=== PATIENT | male | born 1960 ===

== ENCOUNTER 2016-08-30 12:46 | Inpatient (IN) | payer BC ==
--- NOTE | 2016-08-30 13:05 | ED PDOC ---
HPI:STROKE - Time Time: 13:02 - Historian Historian: Patient - Chief Complaint Chief Complaint: Weakness, Slurred speech - Onset Date: 08/30/16 Time: 05:30 Onset: Hours (7.5) - Timing Timing: Resolved - Context Context: Standing - Location Location: Speech Locate right:: Upper extremity, Lower extremity - Severity of pain Maximum severity:: None Severity Current: None - Exacerbated by Exacerbated by:: Nothing - Relieved by Relieved by:: Nothing - TPA Positive for Contraindication: Yes Reason tPA is not being Administered: Sxs resolved - Notes: Notes:: Woke up at 5:30 AM today unable to speak clearly. Also with weakness right uppeer and lowere ext. Sxs resolved at 9AM today. NIHSS Stroke Scale - How Severe is the Stroke Level of Consciousness: 0=Alert LOC to Questions: 0=Both comments correct LOC to commands: 0=Obeys both correctly Best Gaze: 0=Normal Visual: 0=No visual loss Facial: 0=Normal Motor Arm - Left: 0=No drift Motor Arm - Right: 0=No drift Motor Leg - Left: 0=No drift Motor Leg - Right: 0=No drift Limb Ataxia: 0=Absent Sensory: 0=Normal Best Language: 0=No aphasia Dysarthia: 0=Normal articulation Extinction & Inattention (Neglect): 0=Normal, no object Score: 0 rTPA Inclusion/Exclusion - Refusal of Treatment Patient Refused Treatment: No - Inclusion Criteria for Altepase Patient is 18 years or Older: Yes The Clinical Diagnosis of Ischemic Stroke That is Causing a Potentially Disabling Neurological Deficit: Yes Time of Onset is Well Established to be Less Than 270 Minute Before Treatment Would Begin: No Risk/Benefit Discussed With Patient/Family Member Present: No Past Medical History Reviewed: Historical Data, Nursing Documentation, Vital Signs Vital Signs: Last Vital Signs Temp 98.2 F 08/30/16 12:49 Pulse 59 L 08/30/16 12:49 Resp 16 08/30/16 12:49 BP 125/83 08/30/16 12:49 Pulse Ox 100 08/30/16 12:49 - Medical History PMH: No Chronic Diseases - Family History Family History: States: Unknown Family Hx - Allergies Allergies/Adverse Reactions: Allergies Allergy/AdvReac Type Severity Reaction Status Date / Time No Known Allergies Allergy Verified 08/30/16 12:49 Review of Systems ROS Statement: Except As Marked, All Systems Reviewed And Found Negative Neurological: Positive for: Weakness, Change in Speech Physical Exam - Reviewed Nursing Documentation Reviewed: Yes Vital Signs Reviewed: Yes - Physical Exam Appears: Positive for: Non-toxic, No Acute Distress Head Exam: Positive for: ATRAUMATIC, NORMAL INSPECTION, NORMOCEPHALIC Skin: Positive for: Normal Color, Warm, DRY Eye Exam: Positive for: EOMI, Normal appearance, PERRL ENT: Positive for: Normal ENT Inspection Neck: Positive for: Normal, Painless ROM Cardiovascular/Chest: Positive for: Regular Rate, Rhythm Respiratory: Positive for: CNT, Normal Breath Sounds Gastrointestinal/Abdominal: Positive for: Normal Exam, Bowel Sounds, Soft Back: Positive for: Normal Inspection Extremity: Positive for: Normal ROM Neurologic/Psych: Positive for: Alert, Oriented. Negative for: Motor/Sensory Deficits - ECG O2 Sat by Pulse Oximetry: 100 Disposition - Clinical Impression Clinical Impression: TIA (transient ischemic attack) - Patient ED Disposition Is Patient to be Admitted: Yes - Disposition Disposition Time: 13:30 Condition: FAIR - Pt Status Changed To: Hospital Disposition Of: Observation - POA Present On Arrival: None
[2016-08-30 13:28] LABS: BASO % 0.5 % (0.0-2.0); EOS # 0.2 K/uL (0.0-0.7); EOS % 2.4 % (0.0-4.0); HEMOGLOBIN 14.7 g/dL (12.0-18.0); LYMPH # 1.6 K/uL (1.0-4.3); LYMPH % 22.4 % (20.0-40.0); MEAN CELL VOLUME 85.9 fl (80.0-94.0); MEAN CORPUSCULAR HEMOGLOBIN 28.5 pg (27.0-31.0); MEAN CORPUSCULAR HGB CONC 33.2 g/dL (33.0-37.0); MEAN PLATELET VOLUME 8.6 fl (7.2-11.7); MONO # 0.5 K/uL (0.0-0.8); MONO % 6.7 % (0.0-10.0); RBC 5.15 Mil/uL (4.40-5.90); RED CELL DISTRIBUTION WIDTH 14.2 % (11.5-14.5); WHITE BLOOD COUNT 7.3 K/uL (4.8-10.8)
[2016-08-30 13:49] LABS: ALB/GLOB RATIO 1.6 (1.0-2.1); ALBUMIN 4.6 g/dL (3.5-5.0); ALT/SGPT 37 U/L (21-72); AST/SGOT 28 U/L (17-59); BLOOD UREA NITROGEN 15 mg/dl (9-20); CALCIUM 9.6 mg/dL (8.4-10.2); GFR AFRICAN-AMERICAN > 60; GFR NON-AFRICAN AMERICAN > 60
--- NOTE | 2016-08-30 15:47 | CT ---
PROCEDURE: CT HEAD WITHOUT CONTRAST. HISTORY: r/o bleed COMPARISON: None available. TECHNIQUE: Axial computed tomography images were obtained through the head/brain without intravenous contrast. Radiation dose: Total exam DLP = 833.15 mGy-cm. This CT exam was performed using one or more of the following dose reduction techniques: Automated exposure control, adjustment of the mA and/or kV according to patient size, and/or use of iterative reconstruction technique. FINDINGS: HEMORRHAGE: No intracranial hemorrhage. BRAIN: No mass effect or edema. No atrophy or chronic microvascular ischemic changes. VENTRICLES: Unremarkable. No hydrocephalus. CALVARIUM: Unremarkable. PARANASAL SINUSES: Unremarkable as visualized. No significant inflammatory changes. MASTOID AIR CELLS: Unremarkable as visualized. No inflammatory changes. OTHER FINDINGS: None. IMPRESSION: No acute intracranial abnormalities. No significant findings to account for the clinical presentation.
--- NOTE | 2016-08-30 16:00 | RAD ---
HISTORY: TIA COMPARISON: No prior. TECHNIQUE: Chest PA and lateral FINDINGS: LUNGS: No active pulmonary disease. Calcified granuloma left upper lobe. PLEURA: No significant pleural effusion identified. No pneumothorax apparent. CARDIOVASCULAR: No radiographic findings to suggest acute or significant cardiovascular disease. OSSEOUS STRUCTURES: No significant abnormalities. VISUALIZED UPPER ABDOMEN: Normal. OTHER FINDINGS: None. IMPRESSION: No active disease.
--- NOTE | 2016-08-30 16:59 | CP.PCM.HP ---
History of Present Illness - History of Present Illness History of Present Illness: Patient seen and examined at the bedside with attending. 55M with no PMH p/w new onset of symptoms which started this morning. It started with a headache across his LEFT scalp, not associated with visual/ auditory deficits or scotomas/lights. Pt reports he was standing lost his balance due to feeling his RIGHT leg was going to "give out" but he was able to catch himself. That resolved and then he experienced difficulty brushing his teeth he had a sensation of inability to move toothbrush where he wanted it to, this then resolved. He was able to get dressed without difficulty, carpooled to work, and then while at work experienced difficulty with verbalizing what he wanted to say and difficulty writing. Throughout this he continued to have the headache, took an aspirin at ~0900 and all symptoms to include headache went away and have not returned. None of these episodes were associated with dizziness, visual disturbance, diaphoresis, SOB, chest pain, palpitations, or heart racing. PMH: None, denies prior episodes PSH: Appendectomy Smoke: Quit 25yrs ago ALL: NKDA MIRTA: denies prescription, OTC, herbal Present on Admission - Present on Admission Any Indicators Present on Admission: No Review of Systems - Constitutional Constitutional: Headache - Neurological Neurological: Abnormal Speech, Focal Weakness Past Patient History - Past Social History Smoking Status: Never Smoked - CARDIAC Hx Cardiac Disorders: No - PULMONARY Hx Respiratory Disorders: No - NEUROLOGICAL Hx Neurological Disorder: No - HEENT Hx HEENT Problems: No - RENAL Hx Chronic Kidney Disease: No - ENDOCRINE/METABOLIC Hx Endocrine Disorders: No - HEMATOLOGICAL/ONCOLOGICAL Hx Blood Disorders: No - INTEGUMENTARY Hx Dermatological Problems: No - MUSCULOSKELETAL/RHEUMATOLOGICAL Hx Musculoskeletal Disorders: No - GENITOURINARY/GYNECOLOGICAL Hx Genitourinary Disorders: No - PSYCHIATRIC Hx Psychophysiologic Disorder: No - SURGICAL HISTORY Hx Appendectomy: Yes Meds Allergies/Adverse Reactions: Allergies Allergy/AdvReac Type Severity Reaction Status Date / Time No Known Allergies Allergy Verified 08/30/16 12:49 Physical Exam - Constitutional Appears: Well, Non-toxic, No Acute Distress - Head Exam Head Exam: ATRAUMATIC, NORMAL INSPECTION - Eye Exam Eye Exam: EOMI, PERRL. absent: Nystagmus - ENT Exam ENT Exam: Mucous Membranes Moist, Normal Exam - Neck Exam Neck exam: Positive for: Normal Inspection. Negative for: Lymphadenopathy - Respiratory Exam Respiratory Exam: Clear to Auscultation Bilateral, NORMAL BREATHING PATTERN. absent: Rales, Rhonchi, Wheezes - Cardiovascular Exam Cardiovascular Exam: Bradycardia, REGULAR RHYTHM. absent: JVD - GI/Abdominal Exam GI & Abdominal Exam: Normal Bowel Sounds, Soft. absent: Tenderness - Extremities Exam Extremities exam: Positive for: full ROM, normal capillary refill, normal inspection, pedal pulses present. Negative for: calf tenderness, pedal edema, tenderness - Neurological Exam Neurological exam: Alert, CN II-XII Intact, Oriented x3, Reflexes Normal - Psychiatric Exam Psychiatric exam: Normal Affect, Normal Mood - Skin Skin Exam: Intact, Warm Results - Vital Signs Recent Vital Signs: Last Vital Signs Temp 36.7 C 08/30/16 15:10 Pulse 51 L 08/30/16 15:10 Resp 20 08/30/16 15:10 BP 132/76 08/30/16 15:10 Pulse Ox 99 08/30/16 15:10 - Labs Result Diagrams: 08/30/16 13:10 08/30/16 13:10 Labs: Laboratory Results - last 24 hr 08/30/16 08/30/16 08/30/16 13:10 13:10 15:01 WBC 7.3 RBC 5.15 Hgb 14.7 Hct 44.2 MCV 85.9 MCH 28.5 MCHC 33.2 RDW 14.2 Plt Count 224 MPV 8.6 Neut % (Auto) 68.0 Lymph % (Auto) 22.4 [place] % (Auto) 6.7 Eos % (Auto) 2.4 Baso % (Auto) 0.5 Neut # 5.0 Lymph # 1.6 [place] # 0.5 Eos # 0.2 Baso # 0.0 Sodium 140 Potassium 3.9 Chloride 106 Carbon Dioxide 24 Anion Gap 14 BUN 15 Creatinine 0.7 L Est GFR ( Amer) > 60 Est GFR (Non-Af Amer) > 60 Random Glucose 90 Calcium 9.6 Total Bilirubin 0.6 AST 28 ALT 37 Alkaline Phosphatase 74 Troponin I < 0.0120 Total Protein 7.5 Albumin 4.6 Globulin 2.9 Albumin/Globulin Ratio 1.6 TSH 3rd Generation 1.80 Assessment & Plan (1) TIA (transient ischemic attack) Assessment and Plan: Spectrum of symptoms spread over time and ?differing distribution possibly indicative of microembolic events, however patient also with asymptomatic bradycardia. CT head negative for ICH. - Cardiology Consult (Dr Powell) - Echocardiogram - Carotid Duplex - PT screening Status: Acute (2) DVT prophylaxis Assessment and Plan: Lovenox 40mg, SC, HS Status: Acute
--- NOTE | 2016-08-30 17:35 | US ---
PROCEDURE: Duplex ultrasound of the carotid and vertebral arteries. HISTORY: tia COMPARISON: None available. TECHNIQUE: Grayscale and duplex Doppler evaluation of the cervical carotid and vertebral arteries were performed. The common carotid, carotid bifurcations and cervical ICA and proximal ECA were evaluated. The vertebral arteries were evaluated for gross patency and direction. FINDINGS: RIGHT CAROTID ARTERIES: Common Carotid Artery: Normal. Maximal flow velocity of 90 cm/s. Carotid Bifurcation: Heterogeneous plaque formation. Internal Carotid Artery:Heterogeneous plaque formation. Maximal flow velocity of 87.3 cm/s. External Carotid Artery (proximal branches): Normal. Maximal flow velocity of 58.6 cm/s. ICA/CCA Ratio: 1.0 LEFT CAROTID ARTERIES: Common Carotid Artery: Normal. Maximal flow velocity of 106.4 cm/s. Carotid Bifurcation: Heterogeneous plaque formation. Internal Carotid Artery:Heterogeneous plaque formation. Maximal flow velocity of 81.4 cm/s. External Carotid Artery (proximal branches): Normal. Maximal flow velocity of 65.5 cm/s. ICA/CCA Ratio: VERTEBRAL ARTERIES: Right Vertebral Artery: Patent. Antegrade flow. Left Vertebral Artery: Patent. Antegrade flow. OTHER FINDINGS: None. IMPRESSION: Right ICA degree of stenosis: Less than 50% Left ICA degree of stenosis: Less than 50% Reference Internal Carotid Artery (ICA) Peak Systolic Velocity (PSV) for above: 1. Less than 50% stenosis less than 125 cm/s peak systolic velocity 2. 50-69% stenosis 125-230cm/s peak systolic velocity 3. Greater than 70% but less than near occlusion greater than 230 cm/s peak systolic velocity
--- NOTE | 2016-08-30 20:46 | CP.PCM.CON ---
History of Present Illness - History of Present Illness History of Present Illness: I was asked to see patient by Dr. Brownlee. Patient is a 55 year old male with PMH HTN, hypercholesterolemia who presents with dizziness headache, and disequilibrium. The patient was noted to have left sided headache, and then developed associated weakness of the right leg. The patient was able to proceed with his day, but noted word finding difficulties while at work. The patient presented to [facility] for furhter evaluation. His is at the bedside, and reports improvement in his symptoms. Review of Systems - Constitutional Constitutional: absent: As Per HPI, Anorexia, Chills, Daytime Sleepiness, Excessive Sweating, Fatigue, Fever, Frequent Falls, Headache, Increased Appetite , Lethargy, Malaise, Night Sweats, Snoring, Sleep Apnea, Weight Gain, Weight Loss, Weakness, Other - EENT Eyes: absent: As Per HPI, Blind Spots, Blurred Vision, Change in Vision, Decreased Night Vision, Diplopia, Discharge, Dry Eye, Exophthalmos, Floaters, Irritation, Itchy Eyes, Loss of Peripheral Vision, Pain, Photophobia, Requires Corrective Lenses, Sees Flashes, Spots in Vision, Tunnel Vision, Other Visual Disturbances, Loss of Vision, Other Ears: absent: As Per HPI, Decreased Hearing, Ear Discharge, Ear Pain, Tinnitus, Abnormal Hearing, Disequilibrium, Dizziness, Other Nose/Mouth/Throat: absent: As Per HPI, Epistaxis, Nasal Congestion, Nasal Discharge, Nasal Obstruction, Nasal Trauma, Nose Pain, Post Nasal Drip, Sinus Pain, Sinus Pressure, Bleeding Gums, Change in Voice, Dental Pain, Dry Mouth, Dysphagia, Halitosis, Hoarsness, Lip Swelling, Mouth Lesions, Mouth Pain, Odynophagia, Sore Throat, Throat Swelling, Tongue Swelling, Facial Pain, Neck Pain, Neck Mass, Other - Cardiovascular Cardiovascular: absent: As Per HPI, Acrocyanosis, Chest Pain, Chest Pain at Rest , Chest Pain with Activity, Claudication, Diaphoresis, Dyspnea, Dyspnea on Exertion, Edema, Irregular Heart Rhythm, Pain Radiating to Arm/Neck/Jaw, Leg Edema, Leg Ulcers, Lightheadedness, Orthopnea, Palpitations, Paroxysmal Nocturnal Dyspnea, Pedal Edema, Radiating Pain, Rapid Heart Rate, Slow Heart Rate, Syncope, Other - Respiratory Respiratory: absent: As Per HPI, Cough, Dyspnea, Hemoptysis, Dyspnea on Exertion , Wheezing, Snoring, Stridor, Pain on Inspiration, Chest Congestion, Excessive Mucous Production, Change in Mucous Color, Pain with Coughing, Other - Gastrointestinal Gastrointestinal: absent: As Per HPI, Abdominal Pain, Belching, Bloating, Change in Bowel Habits, Change in Stool Character, Coffee Ground Emesis, Constipation, Cramping, Diarrhea, Dyspepsia, Dysphagia, Early Satiety, Excessive Flatus, Fecal Incontinence, Heartburn, Hematemesis, Hematochezia, Loose Stools, Melena, Nausea, Odynophagia, Temesmus, Vomiting, Other - Genitourinary Genitourinary: absent: As Per HPI, Change in Urinary Stream, Difficulty Urinating, Dysuria, Flank Pain, Hematuria, Pyuria, Nocturia, Urinary Incontinence, Urinary Frequency, Urinary Hesitance, Urinary Urgency, Voiding Freq/Small Amts, Freq UTI, Hx Renal/Bladder Calculi, Hx /Renal Surgery, Bladder Distension, Other - Musculoskeletal Musculoskeletal: absent: As Per HPI, Abnormal Gait, Arthralgias, Atrophy, Back Pain, Deformity, Joint Swelling, Limited Range of Motion, Loss of Height, Muscle Cramps, Muscle Weakness, Myalgias, Neck Pain, Numbness, Radiating Pain into Limb, Stiffness, Tingling, Other - Integumentary Integumentary: absent: As Per HPI, Acne, Alopecia, Bleeding Lesions, Change in Hair, Change in Nails, Change in Pigmentation, Changing Lesions, Dry Skin, Erythema, Furuncle, Hirsutism, Lesions, New Lesions, Non-Healing Lesions, Photosensitivity, Pruritus, Rash, Skin Pain, Skin Ulcer, Sores, Striae, Swelling , Unusual Bruising, Wounds, Jaundice, Other - Neurological Neurological: Abnormal Speech, Focal Weakness, Paresthesias - Psychiatric Psychiatric: absent: As Per HPI, Abnormal Sleep Pattern, Anhedonia, Anxiety, Auditory Hallucinations, Behavioral Changes, Change in Appetite, Change in Libido, Confusion, Depression, Difficulty Concentrating, Hallucinations, Homicidal Ideation, Hopelessness, Irritability, Memory Loss, Mood Swings, Panic Attacks, Paranoia, Suicidal Ideation, Visual Hallucinations, Tactile Hallucinations, Other - Endocrine Endocrine: absent: As Per HPI, Change in Body Appearance, Change in Libido, Cold Intolorance, Deepening of Voice, Excessive Sweating, Fatigue, Flushing, Heat Intolorance, Increase in Ring/Shoe/Hat Size, Palpitations, Polydipsia, Polyphagia, Polyuria, Other - Hematologic/Lymphatic Hematologic: absent: As Per HPI, Easy Bleeding, Easy Bruising, Lymphadenopathy, Other Past Patient History - Past Medical History & Family History Past Medical History?: No - Past Social History Smoking Status: Never Smoked - CARDIAC Hx Cardiac Disorders: No - PULMONARY Hx Respiratory Disorders: No - NEUROLOGICAL Hx Neurological Disorder: No - HEENT Hx HEENT Problems: No - RENAL Hx Chronic Kidney Disease: No - ENDOCRINE/METABOLIC Hx Endocrine Disorders: No - HEMATOLOGICAL/ONCOLOGICAL Hx Blood Disorders: No - INTEGUMENTARY Hx Dermatological Problems: No - MUSCULOSKELETAL/RHEUMATOLOGICAL Hx Musculoskeletal Disorders: No Hx Falls: No - GENITOURINARY/GYNECOLOGICAL Hx Genitourinary Disorders: No - PSYCHIATRIC Hx Psychophysiologic Disorder: No Hx Substance Use: No - SURGICAL HISTORY Hx Surgeries: Yes Hx Appendectomy: Yes - ANESTHESIA Hx Anesthesia: Yes Hx Anesthesia Reactions: No Hx Malignant Hyperthermia: No Meds Allergies/Adverse Reactions: Allergies Allergy/AdvReac Type Severity Reaction Status Date / Time No Known Allergies Allergy Verified 08/30/16 12:49 - Medications Medications: Current Medications Aspirin (Aspirin) 325 mg PO DAILY [facility] Enoxaparin Sodium (Lovenox) 40 mg SC HS [facility] PRN Reason: Protocol Physical Exam - Constitutional Appears: Non-toxic - Head Exam Head Exam: NORMAL INSPECTION - Eye Exam Eye Exam: Normal appearance - ENT Exam ENT Exam: Mucous Membranes Moist - Neck Exam Neck exam: Positive for: Full Rom - Respiratory Exam Respiratory Exam: NORMAL BREATHING PATTERN - Cardiovascular Exam Cardiovascular Exam: REGULAR RHYTHM - GI/Abdominal Exam GI & Abdominal Exam: Normal Bowel Sounds - Rectal Exam Rectal Exam: Deferred - Extremities Exam Extremities exam: Positive for: pedal edema - Back Exam Back exam: NORMAL INSPECTION - Neurological Exam Neurological exam: Alert, Oriented x3 - Psychiatric Exam Psychiatric exam: Normal Affect - Skin Skin Exam: Normal Color Results - Vital Signs Recent Vital Signs: Last Vital Signs Temp 97.5 F L 08/30/16 19:25 Pulse 53 L 08/30/16 19:25 Resp 18 08/30/16 19:25 BP 121/63 08/30/16 19:25 Pulse Ox 98 08/30/16 19:25 - Labs Result Diagrams: 08/30/16 13:10 06/29/17 13:10 Labs: Laboratory Results - last 24 hr 08/30/16 08/30/16 08/30/16 13:10 13:10 15:01 WBC 7.3 RBC 5.15 Hgb 14.7 Hct 44.2 MCV 85.9 MCH 28.5 MCHC 33.2 RDW 14.2 Plt Count 224 MPV 8.6 Neut % (Auto) 68.0 Lymph % (Auto) 22.4 [place] % (Auto) 6.7 Eos % (Auto) 2.4 Baso % (Auto) 0.5 Neut # 5.0 Lymph # 1.6 [place] # 0.5 Eos # 0.2 Baso # 0.0 Sodium 140 Potassium 3.9 Chloride 106 Carbon Dioxide 24 Anion Gap 14 BUN 15 Creatinine 0.7 L Est GFR ( Amer) > 60 Est GFR (Non-Af Amer) > 60 Random Glucose 90 Calcium 9.6 Total Bilirubin 0.6 AST 28 ALT 37 Alkaline Phosphatase 74 Troponin I < 0.0120 Total Protein 7.5 Albumin 4.6 Globulin 2.9 Albumin/Globulin Ratio 1.6 TSH 3rd Generation 1.80 - EKG Data EKG Interpreted by: Myself EKG shows normal: Sinus rhythm Assessment & Plan (1) TIA (transient ischemic attack) Assessment and Plan: recommend carotid doppler. check CT scan. echocardiogram. Likely will benefit from Plavix, ASA, statin Status: Acute (2) HTN (hypertension) Assessment and Plan: will continue medical therapy and blood pressure control Status: Acute
[2016-08-30] MEDS ORDERED: Enoxaparin 40 mg Syringe SC SCH (22:00)
--- NOTE | 2016-08-31 10:16 | CP.PCM.PN ---
Subjective - Date & Time of Evaluation Date of Evaluation: 08/31/16 Time of Evaluation: 10:16 - Subjective Subjective: Patient seen and examined at bedside with attending. 55M w/o PMH except prior smoker currently asymptomatic and without recurrent symptoms since admission. Denies SOB, chest pain, imbalance, headache, speech difficulty. Otherwise, comfortable. Objective - Vital Signs/Intake and Output Vital Signs (last 24 hours): Temp Pulse Resp BP Pulse Ox 36.6 C 49 L 16 109/68 97 08/31/16 08:08 08/31/16 09:00 08/31/16 08:08 08/31/16 08:08 08/31/16 08:08 - Medications Medications: Current Medications Aspirin (Aspirin) 325 mg PO DAILY [facility] Last Admin: 08/31/16 08:56 Dose: 325 mg Clopidogrel Bisulfate (Plavix) 75 mg PO DAILY [facility] Enoxaparin Sodium (Lovenox) 40 mg SC HS [facility] PRN Reason: Protocol Last Admin: 08/30/16 22:06 Dose: 40 mg - Labs Labs: 08/30/16 13:10 08/30/16 13:10 - Constitutional Appears: Well, Non-toxic, No Acute Distress - Head Exam Head Exam: ATRAUMATIC, NORMAL INSPECTION - Eye Exam Eye Exam: EOMI, PERRL - ENT Exam ENT Exam: Mucous Membranes Moist, Normal Exam - Respiratory Exam Respiratory Exam: Clear to Ausculation Bilateral, NORMAL BREATHING PATTERN. absent: Rales, Wheezes - Cardiovascular Exam Cardiovascular Exam: REGULAR RHYTHM. absent: JVD - GI/Abdominal Exam GI & Abdominal Exam: Soft, Normal Bowel Sounds. absent: Tenderness - Extremities Exam Extremities Exam: Normal Capillary Refill, Normal Inspection. 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 - Cardiology Consult (Dr Powell): ASA/ Plavix/ Statin - Echocardiogram- WNL - Carotid Duplex- b/l stenosis <50% - PT/OT Status: Acute (2) DVT prophylaxis Assessment & Plan: Lovenox 40mg, SC, HS Status: Acute
--- NOTE | 2016-08-31 11:00 | MRI ---
PROCEDURE: MRI BRAIN WITHOUT CONTRAST HISTORY: TIA COMPARISON: None. TECHNIQUE: Multiplanar, multisequence MR images of the brain were obtained without intravenous contrast enhancement. FINDINGS: HEMORRHAGE: None DWI: There are several foci of restricted diffusion in the right superior cerebellum, the largest in the posterior superior cerebellum. BRAIN PARENCHYMA: Loja-white matter differentiation is preserved. There is no mass, mass effect or abnormal extra-axial fluid collection. The cerebellar tonsils are peg shaped and displaced abort 10 mm below the foramina magnum. No evidence of syrinx in the visualized cervical cord. VENTRICLES: The ventricles are normal in size, shape and configuration. CRANIUM: There is normal bone marrow signal pattern. ORBITS: Grossly unremarkable. PARANASAL SINUSES/MASTOIDS: The paranasal sinuses are predominantly clear. There is a small right mastoid effusion. The left mastoid air cells are predominantly clear P VASCULAR SYSTEM: There are normal signal voids in the larger intracranial arteries. OTHER FINDINGS: None. IMPRESSION: 1. 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 2. Chiari 1 malformation. No evidence of syrinx in the visualized cervical cord. Important additional finding of Chiari 1 malformation which was not mentioned in the [facility] preliminary report was discussed with Dr. Andreas Brownlee at on 08/31/2016 at 10:50 a.m.
--- NOTE | 2016-08-31 12:53 | CARD ---
APPROVED REPORT EXAM: Two-dimensional and M-mode echocardiogram with Doppler and color Doppler. Other Information Quality : GoodRhythm : Bradycardia INDICATION Abnormal EKG/Arrhythmia 2D DIMENSIONS IVSd1.12 (0.7-1.1cm)LVDd4.93 (3.9-5.9cm) LVOT Diameter2.49 (1.8-2.4cm)PWd0.98 (0.7-1.1cm) IVSs1.39 (0.8-1.2cm)LVDs3.39 (2.5-4.0cm) FS (%) 31.2 %PWs1.25 (0.8-1.2cm) M-Mode DIMENSIONS Left Atrium (MM)4.15 (2.5-4.0cm)IVSd1.12 (0.7-1.1cm) Aortic Root3.53 (2.2-3.7cm)LVDd5.82 (4.0-5.6cm) Aortic Cusp Exc.2.35 (1.5-2.0cm)PWd0.91 (0.7-1.1cm) IVSs1.50 cmFS (%) 35 % LVDs3.76 (2.0-3.8cm)PWs1.76 cm Mitral Valve MV E Lwjnwrpe09.4cm/sMV DECEL [id number] A Wkjahhog77.9cm/s MV ROJ48tzZ/A ratio1.1MVA (PHT)3.21cm2 TDI Lateral E' Peak V13.40cm/sMedial E' Peak V7.74cm/sE/Lateral E'5.2 E/Medial E'9.0 Pulmonary Valve PV Peak Hjcmfvqf296.8cm/s Tricuspid Valve TR Peak Qjamyrot834fn/sRAP APNTDLUA45puZmKQ Peak Gr.17mmHg [id number] LEFT VENTRICLE The left ventricle is normal size. There is normal left ventricular wall thickness. The left ventricular function is normal. The left ventricular ejection fraction is 55-60% There is normal LV segmental wall motion. The left ventricular diastolic function is normal. No left ventricle thrombus noted on this study. There is no ventricular septal defect visualized. There is no left ventricular aneurysm. There is no mass noted in the left ventricle. RIGHT VENTRICLE The right ventricle is normal size. There is normal right ventricular wall thickness. The right ventricular systolic function is normal. ATRIA The left atrium size is normal. The right atrium size is normal. The interatrial septum is intact with no evidence for an atrial septal defect. AORTIC VALVE The aortic valve is normal in structure and function. No aortic regurgitation is present. There is no aortic valvular stenosis. There is no aortic valvular vegetation. MITRAL VALVE The mitral valve is normal in structure and function. There is no evidence of mitral valve prolapse. There is no mitral valve stenosis. There is no mitral valve regurgitation noted. TRICUSPID VALVE The tricuspid valve is normal in structure and function. There is no tricuspid valve regurgitation noted. There is no tricuspid valve prolapse or vegetation. There is no tricuspid valve stenosis. PULMONIC VALVE The pulmonary valve is normal in structure and function. There is no pulmonic valvular regurgitation. There is no pulmonic valvular stenosis. GREAT VESSELS The aortic root is normal in size. The ascending aorta is normal in size. The IVC is normal in size and collapses >50% with inspiration. PERICARDIAL EFFUSION The pericardium appears normal. There is no pleural effusion. <Conclusion> Normal Echocardiogram
[2016-08-31 16:21] VITALS: RESP 16
--- NOTE | 2016-08-31 16:44 | CP.PCM.CON ---
History of Present Illness - History of Present Illness History of Present Illness: NEURO CONSULT NOTE: 08/31/16 CHIEF COMPLAINT: GAIT DYSFUNCTION AND DIZZINESS HPI: THIS IS A 55 YEAR OLD MAN WITH PMH OF HTN, HLD WHO WAS BROUGHT IN THE HOSPITAL WITH DIZZINESS IN TERMS OF SPINNING SENSATION OF THE ROOM, DIFFUSE PRESSURE HEADACHE, AND FEATURES OF DYSEQUILLIBRIUM. FOUND TO HAVE ACUTE SMALL INFARCTIONS IN THE RIGHT SUPERIOR CEREBELLUM WHICH SEEMS MORE OF EMBOLIC IN NATURE SUPERIMPOSED UNDERLYING ATHEROSCLEROTIC DISEASE. CAROTID DOPPLER SHOWED NO SIGNIFICANT HEMODYNAMIC STENOSIS.CURRENTLY HE'S WALKING AROUND THE ROOM WITHOUT ANY ISSUES AND IS FEELING MUCH BETTER. NO PRONATOR DRIFT SEEN. CARDIOLOGY ON BOARD FOR BRADYCARDIA AND POSSIBLE MECHANISM OF EMBOLIC STROKE. ROS: 14 POINT REVIEW OF SYMPTOMS IS NEGATIVE PER HPI. ALLERGIES: NONE SOCIAL HISTORY: NO ILLICIT DRUG USE, SMOKING, OR ETOH USE. FAMILY: NON CONTRIBUTORY. MEDICATIONS: REVIEWED BY NURSE'S RECONCILIATION SHEET. PAST MEDICAL HISTORY: HTN, HLD PHYSICAL EXAM: VITAL SIGNS: REVIEWED BY THE CHART GENERAL EXAM: PATIENT SEEN IN BED, IN NO ACUTE DISTRESS HEENT: PERRLA, EOMI, NECK SUPPLE, NO JVD, NO ADENOPATHY CVS: S1, S2, RRR, NO MURMURS NOTED LUNGS: CLEAR TO AUSCULTATION, NO ADVENTITIOUS SOUNDS ABDOMEN: SOFT AND NONTENDER EXTREMITIES: NO CLUBBING OR CYANOSIS. PP 2+ B/L NEURO: PT IS ALERT AND ORIENTED TO PERSON, PLACE, AND YEAR. , RECALL TO 5 MINUTES 3/3, SPEECH IS FLUENT WITHOUT ERRORS, CN II-XII INTACT, MOTOR EXAM: NORMAL TONE, NORMAL BULK OF MUSCLE, MOVES ALL EXTREMITIES EQUALLY, NO PRONATOR DRIFT SEEN. SENSORY EXAM: LIGHT TOUCH, PIN PRICK UP TO CALVES B/L, PROPRIOCEPTION , VIBRATION ARE INTACT B/L DEEP TENDON REFLEXES: 2+ THROUGHOUT. COORDINATION: FINGER TO NOSE IS INTACT. HEEL TO FLOR IS INTACT GAIT: NORMAL. LABS: REVIEWED BY THE CHART. ASSESSMENT AND PLAN: THIS IS A 55 YEAR OLD MAN WITH PMH OF HTN, HLD WHO WAS BROUGHT IN THE HOSPITAL WITH DIZZINESS IN TERMS OF SPINNING SENSATION OF THE ROOM, DIFFUSE PRESSURE HEADACHE, AND FEATURES OF DYSEQUILLIBRIUM. FOUND TO HAVE ACUTE SMALL INFARCTIONS IN THE RIGHT SUPERIOR CEREBELLUM WHICH SEEMS MORE OF EMBOLIC IN NATURE SUPERIMPOSED UNDERLYING ATHEROSCLEROTIC DISEASE. CAROTID DOPPLER SHOWED NO SIGNIFICANT HEMODYNAMIC STENOSIS.CURRENTLY HE'S WALKING AROUND THE ROOM WITHOUT ANY ISSUES AND IS FEELING MUCH BETTER. NO PRONATOR DRIFT SEEN. CARDIOLOGY ON BOARD FOR BRADYCARDIA AND POSSIBLE MECHANISM OF EMBOLIC STROKE. MARCELLA RODRÍGUEZ 1 HAS NO SIGNIFICANCE IN HIS PRESENTATIONS. 1. ASA 81 MG, PLAVIX 75 MG AND LIPITOR 40MG FOR STROKE PREVENTION 2. LOW FAT DIET 3. FIORECET AT THE ACUTE ONSET OF HEADACHE . 4. CARDIOLOGY FOLLOWUP FOR POSSIBLE OUTPATIENT ANTICOAGULATION IN THE FUTURE GIVEN POSSIBLE EMBOLIC PROCESS. 5. CAN FOLLOWUP WITH ME IN THE OFFICE. CLINICALLY STABLE THANK YOU. Monica AGUILAR MD Past Patient History - Past Medical History & Family History Past Medical History?: No - Past Social History Smoking Status: Never Smoked - CARDIAC Hx Cardiac Disorders: No - PULMONARY Hx Respiratory Disorders: No - NEUROLOGICAL Hx Neurological Disorder: No - HEENT Hx HEENT Problems: No - RENAL Hx Chronic Kidney Disease: No - ENDOCRINE/METABOLIC Hx Endocrine Disorders: No - HEMATOLOGICAL/ONCOLOGICAL Hx Blood Disorders: No - INTEGUMENTARY Hx Dermatological Problems: No - MUSCULOSKELETAL/RHEUMATOLOGICAL Hx Musculoskeletal Disorders: No Hx Falls: No - GENITOURINARY/GYNECOLOGICAL Hx Genitourinary Disorders: No - PSYCHIATRIC Hx Psychophysiologic Disorder: No Hx Substance Use: No - SURGICAL HISTORY Hx Surgeries: Yes Hx Appendectomy: Yes - ANESTHESIA Hx Anesthesia: Yes Hx Anesthesia Reactions: No Hx Malignant Hyperthermia: No Meds Allergies/Adverse Reactions: Allergies Allergy/AdvReac Type Severity Reaction Status Date / Time No Known Allergies Allergy Verified 08/30/16 12:49 - Medications Medications: Current Medications Aspirin (Aspirin) 325 mg PO DAILY [facility] Last Admin: 08/31/16 08:56 Dose: 325 mg Atorvastatin Calcium (Lipitor) 40 mg PO DAILY [facility] Clopidogrel Bisulfate (Plavix) 75 mg PO DAILY [facility] Last Admin: 08/31/16 10:00 Dose: 75 mg Enoxaparin Sodium (Lovenox) 40 mg SC [facility] PRN Reason: Protocol Last Admin: 08/30/16 22:06 Dose: 40 mg Results - Vital Signs Recent Vital Signs: Last Vital Signs Temp 98.5 F 08/31/16 16:21 Pulse 50 L 08/31/16 16:21 Resp 16 08/31/16 16:21 BP 127/60 08/31/16 16:21 Pulse Ox 98 08/31/16 16:21 - Labs Result Diagrams: 08/30/16 13:10 08/30/16 13:10 Labs: Laboratory Results - last 24 hr 08/30/16 08/31/16 08/31/16 20:35 03:32 09:00 Hemoglobin A1c 5.8 Troponin I < 0.0120 < 0.0120 Triglycerides Cholesterol LDL Cholesterol Direct HDL Cholesterol TSH 3rd Generation 08/31/16 09:16 Hemoglobin A1c Troponin I Triglycerides 53 Cholesterol 187 LDL Cholesterol Direct 106 HDL Cholesterol 59 TSH 3rd Generation 2.33
--- NOTE | 2016-08-31 17:22 | CARD ---
APPROVED REPORT EKG Measurement Heart [id number] <Conclusion> Marked sinus bradycardia Left axis deviation Abnormal ECG
--- NOTE | 2016-08-31 18:09 | CP.PCM.PN ---
Subjective - Date & Time of Evaluation Date of Evaluation: 08/31/16 Time of Evaluation: 18:00 - Subjective Subjective: no new complaints. no chest pain or dyspnea Objective - Vital Signs/Intake and Output Vital Signs (last 24 hours): Temp Pulse Resp BP Pulse Ox 98.5 F 50 L 16 127/60 98 08/31/16 16:21 08/31/16 16:21 08/31/16 16:21 08/31/16 16:21 08/31/16 16:21 - Medications Medications: Current Medications Aspirin (Aspirin Chewable) 81 mg PO DAILY [facility] Atorvastatin Calcium (Lipitor) 40 mg PO DAILY [facility] Clopidogrel Bisulfate (Plavix) 75 mg PO DAILY [facility] Last Admin: 08/31/16 10:00 Dose: 75 mg Enoxaparin Sodium (Lovenox) 40 mg SC HS [facility] PRN Reason: Protocol Last Admin: 08/30/16 22:06 Dose: 40 mg - Constitutional Appears: Non-toxic - Head Exam Head Exam: NORMAL INSPECTION - Eye Exam Eye Exam: Normal appearance - ENT Exam ENT Exam: Mucous Membranes Moist - Neck Exam Neck Exam: Full ROM - Respiratory Exam Respiratory Exam: NORMAL BREATHING PATTERN - Cardiovascular Exam Cardiovascular Exam: REGULAR RHYTHM - GI/Abdominal Exam GI & Abdominal Exam: Normal Bowel Sounds - Rectal Exam Rectal Exam: Deferred - Extremities Exam Extremities Exam: Full ROM - Back Exam Back Exam: NORMAL INSPECTION - Neurological Exam Neurological Exam: Alert - Psychiatric Exam Psychiatric exam: Normal Affect - Skin Skin Exam: Normal Color Assessment and Plan (1) TIA (transient ischemic attack) Assessment & Plan: stable currently. continue antiplatelet therapy. Patient is stable for discharge. Status: Acute (2) HTN (hypertension) Status: Acute
[2016-08-31 19:56] VITALS: BP 119/56; PULSE 56; TEMP 98.3; O2SAT 97
--- NOTE | 2016-09-03 11:36 | PQF GENQUE ---
Dr. Mena, Transient Hemiparesis? OR: Disagree OR:Other explanation of clinical findings ER note: Woke up at 5:30 AM today unable to speak clearly. Also with weakness right upper and lower ext. Sxs resolved at 9AM today. Impression: TIA Neuro consult: FOUND TO HAVE ACUTE SMALL INFARCTIONS IN THE RIGHT SUPERIOR CEREBELLUM WHICH SEEMS MORE OF EMBOLIC IN NATURE SUPERIMPOSED UNDERLYING ATHEROSCLEROTIC DISEASE. CAROTID DOPPLER SHOWED NO SIGNIFICANT HEMODYNAMIC STENOSIS.CURRENTLY HE'S WALKING AROUND THE ROOM WITHOUT ANY ISSUES AND IS FEELING MUCH BETTER. NO PRONATOR DRIFT SEEN. CARDIOLOGY ON BOARD FOR BRADYCARDIA AND POSSIBLE MECHANISM OF EMBOLIC STROKE MRI BRAIN: IMPRESSION: 1. 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 2. Chiari 1 malformation. No evidence of syrinx in the visualized cervical cord. This form is a permanent part of the medical record Clarification of your documentation is requested to better reflect the severity of illness and intensity of treatment of your patient. Indicators present [] Specify: [] [] Specify: [] [] Specify: [] [] Specify: [] Location in the medical record that reflects the above clinical findings: [] Treatment Provided: [] PHYSICIAN'S RESPONSE Based on your medical judgment of the clinical indicators outlined above please clarify the following: [] Practitioner response [] If unable to determine, please check the box, sign and date. Present On Admission (POA) Indicator: [] Present at the time of admission [] Not present at the time of admission [] Clinically Undetermined In responding to this query, please exercise your independent professional judgment. The fact that a question is asked does not imply that any particular answer is desired or expected. Thank you for your clarification on this documentation. If you have any questions please call. * Thank you, Sana Avilez RN BSN ext. #[phone] : (ext. #[phone] out of service at the present time) ROSA
== END 2016-08-31 20:00 | disposition home or self-care (01) | DRG 66 ==
LOC: H.ER 12:46 → H.ERHOLD 12:55 → H.TEL 16:45 → OBSVTOIN 08-31 14:19
PROVIDERS: ADMIT Family Medicine; ATTEND Family Medicine
DX: I63.441 Cerebral infarction due to embolism of right cerebellar artery (principal); I10 Essential (primary) hypertension; E78.5 Hyperlipidemia, unspecified; Z87.891 Personal history of nicotine dependence; E78.00 Pure hypercholesterolemia, unspecified; R00.1 Bradycardia, unspecified